=== PATIENT | female | born 1990 | race Two or more races ===

== ENCOUNTER 2018-05-25 23:05 | Emergency (ER) | payer SELFPAY ==
[~2018-05-25] VITALS: Ht 160 cm; Wt 59.0 kg
[2018-05-25 23:15] VITALS: BP 105/72
== END 2018-05-26 00:50 | disposition home or self-care (01) ==
LOC: ER 23:07
DX: F45.8 Other somatoform disorders (principal); Z60.2 Problems related to living alone
CPT/HCPCS: 93005; 99283; A4606